=== PATIENT | male | born 1980 | race Hispanic/Latino ===

== ENCOUNTER 2022-05-23 21:03 | Emergency (ER) | payer OTHER ==
[2022-05-23 21:30] LABS: #Basophils 0.1 thou/uL (0.0-0.2); #Eosinphils 0.3 thou/uL (0.0-0.7); #Lymphocytes 2.9 thou/uL (1.20-3.40); #Monocytes 0.7 thou/uL (0.11-0.59); #Neutrophils 6.3 thou/uL (1.40-6.50); %Basophils 1.2 % (0.0-1.0); %Eosinophils 2.8 % (0.0-10.0); %Lymphocytes 27.8 % (21.0-51.0); %Monocytes 7.1 % (0.0-10.0); %Neutrophils 61.2 % (42.0-75.0); Hemoglobin 16.6 g/dL (14.0-18.0); Mean Corpuscular HGB CONC 34.4 g/dL (32.0-36.0); Mean Corpuscular Hemoglobin 32.8 pg (27.0-31.0); Mean Corpuscular Volume 95.5 fl (78.0-98.0); Mean Platelet Volume 10.8 fL (7.4-10.4); Platelet Count 237 10x3/uL (130-400); RBC Distribution Width 10.4 % (11.5-14.5); Red Blood Cell (RBC) Count 5.08 mill/uL (4.70-6.10); White Blood Cell (WBC) Count 10.4 10x3/uL (4.8-10.8)
[2022-05-23] MEDS ORDERED: Sodium Chloride 0.9% 1,000 ML ONE (21:36)
[2022-05-23] MEDS ORDERED: Ketorolac Tromethamine 30 MG/ML VIAL ONE (21:36)
[2022-05-23] MEDS ORDERED: Aspirin 325 MG TAB ONE (21:36)
[2022-05-23 21:42] LABS: ALT (SGPT) 27 U/L (8-55); AST (SGOT) 20 U/L (5-34); Albumin 4.2 g/dL (3.5-5.0); Alkaline Phosphatase 112 U/L (40-110); Anion Gap 13 mmol/L (10-20); BUN (Urea Nitrogen) 7 mg/dL (8.9-20.6); Bilirubin, Total 1.3 mg/dL (0.2-1.2); Calc. Creatinine Clearance 0 mL/min (70-130); Calcium 8.9 mg/dL (7.8-10.44); Carbon Dioxide 22 mmol/L (22-29); Chloride 105 mmol/L (98-107); Estimated GFR 116; Globulin 3.3 g/dL (2.4-3.5); Glucose 289 mg/dL (70-105); Magnesium 2.3 mg/dL (1.6-2.6); Protein, Total 7.5 g/dL (6.0-8.3); Sodium 136 mmol/L (136-145)
== END 2022-05-23 22:16 | disposition home or self-care (01) ==
LOC: MADERS 21:03
DX: M94.0 Chondrocostal junction syndrome [Tietze] (principal); E11.9 Type 2 diabetes mellitus without complications
CPT/HCPCS: 71045; 80053; 83735; 84484; 85025; 93005; 96361; 96374; J1885; J7050